=== PATIENT | male | born 1965 | race Caucasian/White ===

== ENCOUNTER 2020-10-25 11:21 | Outpatient (CLI) | payer OTHER ==
--- NOTE | 2020-10-25 12:22 | RAD ---
PA AND LATERAL VIEWS CHEST: Date: 10/25/2020 HISTORY: Imaging for disability. COMPARISON: 07/02/2016. FINDINGS: Changes of median sternotomy again seen. The heart size is borderline but stable. The lungs are expan ded without lobar consolidation, pneumothoraces, or pleural effusions. There are degenerative changes in the spine. IMPRESSION: No radiographic evidence of acute cardiopulmonary process. POS: OFF
--- NOTE | 2020-10-25 13:16 | RAD ---
RIGHT KNEE 2 VIEWS: HISTORY: Right knee pain, disability evaluation. FINDINGS/IMPRESSION: There are degenerative changes in the right knee. Postop changes with a pin in the medial tibial marly teau is seen. No acute fracture or dislocation is identified. POS: OFF
== END 2020-10-25 11:22 | disposition home or self-care (01) ==
LOC: BICRAD 11:21
PROVIDERS: ATTEND Internal Medicine
DX: Z02.71 Encounter for disability determination (principal); M17.11 Unilateral primary osteoarthritis, right knee; Z98.890 Other specified postprocedural states
CPT/HCPCS: 71046

== ENCOUNTER 2020-10-28 11:09 | Outpatient (CLI) | payer OTHER ==
--- NOTE | 2020-10-28 12:08 | RAD ---
LUMBAR SPINE 2 VIEWS: HISTORY: Disability evaluation. FINDINGS: Lumbar vertebrae maintain normal height and alignment. Mild loss of disk space at L5-S1. The other disk spaces are normally preserved. Mild facet hypertrophy at L4-5 and L5-S1. No evidence of spondy lolisthesis. IMPRESSION: Mild loss of disk space at L5-S1 and mild facet hypertrophy in the lower lumbar spine. POS: AGW
== END 2020-10-28 11:10 | disposition home or self-care (01) ==
LOC: BICRAD 11:09
PROVIDERS: ATTEND Internal Medicine
DX: Z02.71 Encounter for disability determination (principal); I48.91 Unspecified atrial fibrillation
CPT/HCPCS: 72100